=== PATIENT | male | born 1965 | race Caucasian/White ===

== ENCOUNTER 2017-07-30 22:46 | Emergency (ER) | payer SELFPAY ==
[2017-07-30 23:58] LABS: ADD MAN DIFF? NO
[2017-07-31 00:02] LABS: WHITE BLOOD COUNT 8.1 10^3/ul (4.8-10.8)
[2017-07-31 00:02] LABS: BASOPHIL # 0.1 10^3/ul (0.0-0.1); BASOPHILS % 0.6 % (0.0-2.0); EOSINOPHILS # 0.2 10^3/ul (0.0-0.5); EOSINOPHILS % 2.6 % (0.0-7.0); HEMATOCRIT 34.5 % (42.0-52.0); HEMOGLOBIN 12.4 g/dl (14.0-18.0); LYMPHOCYTES # 1.6 10^3/ul (0.8-2.9); LYMPHOCYTES % 19.1 % (15.0-51.0); MEAN CORPUSCULAR HEMOGLOBIN 31.5 pg (29.0-33.0); MEAN CORPUSCULAR HGB CONC 35.9 g/dl (32.0-37.0); MEAN CORPUSCULAR VOLUME 87.6 fl (82.0-101.0); MONOCYTE # 0.8 10^3/ul (0.3-0.9); MONOCYTES % 9.3 % (0.0-11.0); NEUTROPHIL # 5.5 10^3/ul (1.6-7.5); NEUTROPHILS % 67.4 % (39.0-77.0); PLATELET COUNT 198 10^3/UL (140-415); RED BLOOD COUNT 3.94 10^6/ul (4.70-6.10); RED CELL DISTRIBUTION WIDTH 12.6 % (11.5-14.5)
[2017-07-31 00:22] LABS: INR 1.02; PROTIME 13.5 Sec (11.9-14.9); PT RATIO 1.1
[2017-07-31 00:23] LABS: ALANINE AMINOTRANSFERASE 48 IU/L (13-69); ALBUMIN 3.8 g/dl (3.3-4.9); ALBUMIN/GLOBULIN RATIO 1.31; ALKALINE PHOSPHATASE 97 IU/L (42-121); ANION GAP 13 (8-16); ASPARTATE AMINO TRANSFERASE 30 IU/L (15-46); BILIRUBIN,INDIRECT 0.3 mg/dl (0-1.1); BILIRUBIN,TOTAL 0.3 mg/dl (0.2-1.3); BLOOD UREA NITROGEN 17 mg/dl (7-20); CALCIUM 8.7 mg/dl (8.4-10.2); CARBON DIOXIDE 25 mmol/L (21-31); CHLORIDE 106 mmol/L (97-110); CREATININE 0.91 mg/dl (0.61-1.24); GLUCOSE 107 mg/dl (70-220); LIPASE 316 U/L (23-300); PARTIAL THROMBOPLASTIN TIME 27.4 Sec (25.0-35.0); POTASSIUM 3.4 mmol/L (3.5-5.1); SODIUM 141 mmol/L (135-144); TOTAL PROTEIN 6.7 g/dl (6.1-8.1)
[2017-07-31 00:26] LABS: D-DIMER 454.48 ng/ml (<460)
[2017-07-31 00:38] LABS: TROPONIN-I < 0.012 ng/ml (0.00-0.12)
[2017-07-31 02:02] LABS: ETHANOL < 10.0 mg/dl
[2017-07-31 02:46] LABS: CARBAMAZEPINE (TEGRETOL) < 3.0 ug/ml (8.0-12.0)
[2017-07-31] MEDS: POTASSIUM CHLORIDE (SR) 20 MEQ TAB PO (03:00)
[2017-07-31 03:38] LABS: TROPONIN-I < 0.012 ng/ml (0.00-0.12)
== END 2017-07-31 04:00 | disposition home or self-care (01) ==
LOC: E/R 07-31 04:00
DX: E87.6 Hypokalemia (principal); D64.9 Anemia, unspecified
CPT/HCPCS: 36415; 71045; 80053; 80156; 80306; 83690; 84484; 85025; 85378; 85610; 85730; 93005; 99285-25

== ENCOUNTER 2017-08-15 11:57 | Emergency (ER) | payer BC ==
[2017-08-15 12:47] LABS: ADD MAN DIFF? NO
[2017-08-15 12:51] LABS: WHITE BLOOD COUNT 8.4 10^3/ul (4.8-10.8)
[2017-08-15 12:51] LABS: BASOPHIL # 0.1 10^3/ul (0.0-0.1); BASOPHILS % 0.7 % (0.0-2.0); EOSINOPHILS # 0.1 10^3/ul (0.0-0.5); EOSINOPHILS % 1.3 % (0.0-7.0); HEMATOCRIT 38.5 % (42.0-52.0); HEMOGLOBIN 14.1 g/dl (14.0-18.0); LYMPHOCYTES # 1.5 10^3/ul (0.8-2.9); LYMPHOCYTES % 18.2 % (15.0-51.0); MEAN CORPUSCULAR HEMOGLOBIN 31.5 pg (29.0-33.0); MEAN CORPUSCULAR HGB CONC 36.6 g/dl (32.0-37.0); MEAN CORPUSCULAR VOLUME 86.1 fl (82.0-101.0); MEAN PLATELET VOLUME 9.5 fl (7.4-10.4); MONOCYTE # 0.6 10^3/ul (0.3-0.9); MONOCYTES % 7.6 % (0.0-11.0); NEUTROPHILS % 71.1 % (39.0-77.0); PLATELET COUNT 211 10^3/UL (140-415); RED BLOOD COUNT 4.47 10^6/ul (4.70-6.10); RED CELL DISTRIBUTION WIDTH 12.1 % (11.5-14.5)
[2017-08-15] MEDS: KETOROLAC 15 MG INJ IV (12:55)
[2017-08-15] MEDS: SOD CHLORIDE 0.9% 1,000 ML IV (12:55)
[2017-08-15 13:09] LABS: ANION GAP 16 (8-16); BLOOD UREA NITROGEN 11 mg/dl (7-20); CALCIUM 9.1 mg/dl (8.4-10.2); CARBON DIOXIDE 24 mmol/L (21-31); CHLORIDE 104 mmol/L (97-110); CREATININE 0.88 mg/dl (0.61-1.24); GLUCOSE 134 mg/dl (70-220); SODIUM 141 mmol/L (135-144)
[2017-08-15 13:17] LABS: VALPROATE < 10 ug/ml (50-100)
[2017-08-15] MEDS: ALBUTEROL 0.5% (NEB) 2.5 MG/0.5 ML AMP INH (13:57)
[2017-08-15] MEDS: POTASSIUM CHLORIDE 20 MEQ POWDER FOR ORAL SOLN PO (15:26)
[2017-08-15] MEDS: POTASSIUM CHLORIDE (SR) 20 MEQ TAB PO (15:26)
== END 2017-08-15 15:27 | disposition home or self-care (01) ==
LOC: E/R 11:57
DX: J20.9 Acute bronchitis, unspecified (principal); R13.10 Dysphagia, unspecified; B34.9 Viral infection, unspecified; E87.6 Hypokalemia; I10 Essential (primary) hypertension
CPT/HCPCS: 70360; 71045; 80048; 80164; 85025; 93005; 94644; 96374; 99284-25

== ENCOUNTER 2017-08-19 13:41 | Emergency (ER) | payer SELFPAY, BC | END 2017-08-19 20:08 | disposition left against medical advice (07) | LOC: E/R 13:41 | DX: Z53.21 Procedure and treatment not carried out due to patient leaving prior to being seen by health care provider (principal) | CPT/HCPCS: 93005 ==

== ENCOUNTER 2017-08-24 12:37 | Emergency (ER) | payer BC ==
[2017-08-24 14:38] LABS: ADD MAN DIFF? NO
[2017-08-24 14:41] LABS: ABNORMAL IP MESSAGE 1; BASOPHILS % 0.1 % (0.0-2.0); HEMATOCRIT 41.4 % (42.0-52.0); HEMOGLOBIN 14.4 g/dl (14.0-18.0); LYMPHOCYTES # 0.5 10^3/ul (0.8-2.9); LYMPHOCYTES % 6.5 % (15.0-51.0); MEAN CORPUSCULAR HEMOGLOBIN 31.1 pg (29.0-33.0); MEAN CORPUSCULAR HGB CONC 34.8 g/dl (32.0-37.0); MEAN CORPUSCULAR VOLUME 89.4 fl (82.0-101.0); MEAN PLATELET VOLUME 10.3 fl (7.4-10.4); MONOCYTE # 0.1 10^3/ul (0.3-0.9); MONOCYTES % 1.3 % (0.0-11.0); NEUTROPHIL # 7.7 10^3/ul (1.6-7.5); NEUTROPHILS % 91.5 % (39.0-77.0); PLATELET COUNT 235 10^3/UL (140-415); POSITIVE DIFF @See below; RED BLOOD COUNT 4.63 10^6/ul (4.70-6.10); RED CELL DISTRIBUTION WIDTH 12.2 % (11.5-14.5)
[2017-08-24 14:41] LABS: WHITE BLOOD COUNT 8.4 10^3/ul (4.8-10.8)
[2017-08-24 14:42] LABS: ETHANOL < 10.0 mg/dl
[2017-08-24 14:48] LABS: ANION GAP 16 (8-16); BLOOD UREA NITROGEN 18 mg/dl (7-20); CALCIUM 9.4 mg/dl (8.4-10.2); CARBON DIOXIDE 23 mmol/L (21-31); CHLORIDE 109 mmol/L (97-110); CREATININE 0.85 mg/dl (0.61-1.24); GLUCOSE 159 mg/dl (70-220); POTASSIUM 4.2 mmol/L (3.5-5.1); SODIUM 144 mmol/L (135-144)
[2017-08-24 15:10] LABS: TROPONIN-I < 0.012 ng/ml (0.00-0.12)
== END 2017-08-24 16:10 | disposition left against medical advice (07) ==
LOC: E/R 12:37
DX: R07.9 Chest pain, unspecified (principal); I10 Essential (primary) hypertension
CPT/HCPCS: 71045; 80048; 80306; 84484; 85025; 93005; 99285-25

== ENCOUNTER 2017-11-02 08:57 | Observation (INO) | payer BC ==
[2017-11-02] MEDS: ASPIRIN 325 MG TAB PO (09:18)
[2017-11-02 09:23] LABS: ADD MAN DIFF? NO
[2017-11-02 09:25] LABS: WHITE BLOOD COUNT 6.2 10^3/ul (4.8-10.8)
[2017-11-02 09:25] LABS: BASOPHILS % 0.5 % (0.0-2.0); EOSINOPHILS # 0.1 10^3/ul (0.0-0.5); HEMATOCRIT 37.6 % (42.0-52.0); HEMOGLOBIN 13.2 g/dl (14.0-18.0); LYMPHOCYTES # 1.3 10^3/ul (0.8-2.9); LYMPHOCYTES % 20.4 % (15.0-51.0); MEAN CORPUSCULAR HEMOGLOBIN 30.2 pg (29.0-33.0); MEAN CORPUSCULAR HGB CONC 35.1 g/dl (32.0-37.0); MEAN PLATELET VOLUME 8.9 fl (7.4-10.4); MONOCYTE # 0.5 10^3/ul (0.3-0.9); MONOCYTES % 8.7 % (0.0-11.0); NEUTROPHIL # 4.3 10^3/ul (1.6-7.5); NEUTROPHILS % 68.9 % (39.0-77.0); PLATELET COUNT 211 10^3/UL (140-415); RED BLOOD COUNT 4.37 10^6/ul (4.70-6.10); RED CELL DISTRIBUTION WIDTH 12.2 % (11.5-14.5)
[2017-11-02 09:44] LABS: ANION GAP 13 (8-16); BLOOD UREA NITROGEN 16 mg/dl (7-20); CALCIUM 8.8 mg/dl (8.4-10.2); CARBON DIOXIDE 25 mmol/L (21-31); CHLORIDE 112 mmol/L (97-110); CREATININE 0.73 mg/dl (0.61-1.24); GLUCOSE 119 mg/dl (70-220); POTASSIUM 3.4 mmol/L (3.5-5.1); SODIUM 147 mmol/L (135-144)
[2017-11-02 09:57] LABS: TROPONIN-I < 0.012 ng/ml (0.00-0.12)
[2017-11-02] MEDS ORDERED: NACL 0.9% 3 ML SYG IV (14:30)
[2017-11-02 15:51] LABS: CREATINE KINASE 184 IU/L (23-200)
[2017-11-02 16:02] LABS: CK INDEX 1.1
[2017-11-02 16:18] LABS: CK-MB 1.98 ng/ml (0.0-2.4); TROPONIN-I < 0.012 ng/ml (0.00-0.12)
[2017-11-02] MEDS: traZODone 50 MG TAB PO (22:00)
[2017-11-03] MEDS: ENOXAPARIN 40 MG/0.4 ML SYG SC (09:57)
[2017-11-03 11:18] LABS: CREATINE KINASE 133 IU/L (23-200)
[2017-11-03 11:41] LABS: CK-MB 1.36 ng/ml (0.0-2.4); TROPONIN-I < 0.012 ng/ml (0.00-0.12)
[2017-11-03] MEDS: POTASSIUM CHLORIDE (SR) 20 MEQ TAB PO (20:55)
[2017-11-03] MEDS: traZODone 50 MG TAB PO (20:55)
[2017-11-04] MEDS: ENOXAPARIN 40 MG/0.4 ML SYG SC (08:16)
== END 2017-11-04 16:50 | disposition left against medical advice (07) ==
LOC: E/R 08:57 → MS4 10:23
DX: R07.89 Other chest pain (principal); L30.9 Dermatitis, unspecified; F31.9 Bipolar disorder, unspecified; I10 Essential (primary) hypertension; Z88.6 Allergy status to analgesic agent; Z88.8 Allergy status to other drugs, medicaments and biological substances; D64.9 Anemia, unspecified; J20.9 Acute bronchitis, unspecified; E87.6 Hypokalemia; R13.10 Dysphagia, unspecified
CPT/HCPCS: 36415; 71045; 80048; 82550; 82553; 83735; 84484; 85025; 93005; 93306; 99285-25; G0378

== ENCOUNTER 2017-12-03 08:19 | Inpatient (IN) | payer BC ==
[2017-12-03 09:08] LABS: ADD MAN DIFF? NO
[2017-12-03 09:11] LABS: WHITE BLOOD COUNT 9.9 10^3/ul (4.8-10.8)
[2017-12-03 09:11] LABS: BASOPHILS % 0.4 % (0.0-2.0); EOSINOPHILS # 0.3 10^3/ul (0.0-0.5); EOSINOPHILS % 2.9 % (0.0-7.0); HEMATOCRIT 37.3 % (42.0-52.0); HEMOGLOBIN 12.7 g/dl (14.0-18.0); LYMPHOCYTES # 1.4 10^3/ul (0.8-2.9); LYMPHOCYTES % 13.8 % (15.0-51.0); MEAN CORPUSCULAR HEMOGLOBIN 29.9 pg (29.0-33.0); MEAN CORPUSCULAR VOLUME 87.8 fl (82.0-101.0); MEAN PLATELET VOLUME 9.9 fl (7.4-10.4); MONOCYTE # 0.9 10^3/ul (0.3-0.9); MONOCYTES % 9.1 % (0.0-11.0); NEUTROPHIL # 7.3 10^3/ul (1.6-7.5); NEUTROPHILS % 73.3 % (39.0-77.0); PLATELET COUNT 170 10^3/UL (140-415); RED BLOOD COUNT 4.25 10^6/ul (4.70-6.10); RED CELL DISTRIBUTION WIDTH 13.5 % (11.5-14.5)
[2017-12-03 09:32] LABS: ALANINE AMINOTRANSFERASE 28 IU/L (13-69); ALBUMIN 4.1 g/dl (3.3-4.9); ALBUMIN/GLOBULIN RATIO 1.28; ALKALINE PHOSPHATASE 128 IU/L (42-121); ANION GAP 13 (8-16); ASPARTATE AMINO TRANSFERASE 22 IU/L (15-46); BILIRUBIN,INDIRECT 1.2 mg/dl (0-1.1); BILIRUBIN,TOTAL 1.2 mg/dl (0.2-1.3); BLOOD UREA NITROGEN 13 mg/dl (7-20); CALCIUM 8.6 mg/dl (8.4-10.2); CARBON DIOXIDE 23 mmol/L (21-31); CHLORIDE 107 mmol/L (97-110); CREATINE KINASE 139 IU/L (23-200); CREATININE 0.74 mg/dl (0.61-1.24); GLUCOSE 98 mg/dl (70-220); POTASSIUM 3.4 mmol/L (3.5-5.1); SODIUM 140 mmol/L (135-144); TOTAL PROTEIN 7.3 g/dl (6.1-8.1)
[2017-12-03 09:33] LABS: LACTIC ACID 0.5 mmol/L (0.5-2.0)
[2017-12-03 09:38] LABS: INR 0.97; PARTIAL THROMBOPLASTIN TIME 31.5 Sec (25.0-35.0)
[2017-12-03] MEDS: CLINDAMYCIN 900 MG/D5W (PMX) 50 ML IVPB (09:59)
[2017-12-03] MEDS: ONDANSETRON 4 MG INJ IV (10:00)
[2017-12-03] MEDS: morphine 4 MG/ML VIAL IV (10:00)
[2017-12-03] MEDS: SODIUM CHLORIDE 0.9% 1L BAG IV* (10:01)
[2017-12-03] MEDS ORDERED: ONDANSETRON 4 MG INJ IV ×2 (11:00→12:00)
[2017-12-03] MEDS ORDERED: NACL 0.9% 3 ML SYG IV (12:00)
[2017-12-03] MEDS: POTASSIUM CHLORIDE (SR) 10 MEQ TAB PO (12:00)
[2017-12-03] MEDS ORDERED: VANCOMYCIN IV PER PHARMACY XX (12:00)
[2017-12-03] MEDS ORDERED: morphine 2 MG INJ IV (12:00)
[2017-12-03 12:06] LABS: LACTIC ACID 0.8 mmol/L (0.5-2.0)
[2017-12-03] MEDS: VANCOMYCIN 1.5 GM in SOD CHLORIDE 0.9% 250 ML IVPB (14:06)
[2017-12-03 14:25] LABS: LACTIC ACID 1.7 mmol/L (0.5-2.0)
[2017-12-03 14:32] LABS: ETHANOL < 10.0 mg/dl
[2017-12-03 14:34] LABS: HEMOGLOBIN A1C 5.4 % (0-5.9)
[2017-12-03 14:43] LABS: FREE T4 (FREE THYROXINE) 0.95 ng/dl (0.64-1.79)
[2017-12-03] MEDS: morphine LIQ (10 MG/5 ML) CUP PO (18:30)
[2017-12-03] MEDS: VANCOMYCIN 1 GM 250 ML IVPB (21:30)
[2017-12-04] MEDS: IBUPROFEN 600 MG TAB PO ×3 (01:03→21:45)
[2017-12-04] MEDS: VANCOMYCIN 1 GM 250 ML IVPB ×2 (05:27→14:52)
[2017-12-04] MEDS: ENOXAPARIN 40 MG/0.4 ML SYG SC (09:40)
[2017-12-04 14:00] LABS: ADD MAN DIFF? NO
[2017-12-04 14:02] LABS: WHITE BLOOD COUNT 11.5 10^3/ul (4.8-10.8)
[2017-12-04 14:02] LABS: BASOPHIL # 0.1 10^3/ul (0.0-0.1); BASOPHILS % 0.4 % (0.0-2.0); EOSINOPHILS # 0.4 10^3/ul (0.0-0.5); EOSINOPHILS % 3.2 % (0.0-7.0); HEMATOCRIT 38.5 % (42.0-52.0); HEMOGLOBIN 13.1 g/dl (14.0-18.0); LYMPHOCYTES # 1.4 10^3/ul (0.8-2.9); LYMPHOCYTES % 12.4 % (15.0-51.0); MEAN CORPUSCULAR HEMOGLOBIN 30.3 pg (29.0-33.0); MEAN CORPUSCULAR VOLUME 88.9 fl (82.0-101.0); MEAN PLATELET VOLUME 9.8 fl (7.4-10.4); MONOCYTE # 0.9 10^3/ul (0.3-0.9); MONOCYTES % 7.9 % (0.0-11.0); NEUTROPHIL # 8.7 10^3/ul (1.6-7.5); NEUTROPHILS % 75.2 % (39.0-77.0); PLATELET COUNT 191 10^3/UL (140-415); RED BLOOD COUNT 4.33 10^6/ul (4.70-6.10); RED CELL DISTRIBUTION WIDTH 13.6 % (11.5-14.5)
[2017-12-04 14:19] LABS: ANION GAP 13 (8-16); BLOOD UREA NITROGEN 13 mg/dl (7-20); CALCIUM 8.8 mg/dl (8.4-10.2); CARBON DIOXIDE 27 mmol/L (21-31); CHLORIDE 104 mmol/L (97-110); CREATININE 0.81 mg/dl (0.61-1.24); GLUCOSE 117 mg/dl (70-220); POTASSIUM 3.5 mmol/L (3.5-5.1); SODIUM 140 mmol/L (135-144)
[2017-12-04 14:20] LABS: CHOL/HDL RATIO 2.8 RATIO; CHOLESTEROL 112 mg/dl (100-200); HDL CHOLESTEROL 40 mg/dl (28-71); LDL CHOLESTEROL,CALCULATED 54 mg/dl; MAGNESIUM 2.2 mg/dl (1.7-2.5); TRIGLYCERIDES 90 mg/dl (0-149)
[2017-12-04 14:25] LABS: VANCOMYCIN,TROUGH 8.7 ug/ml (10.0-20.0)
[2017-12-04 14:35] LABS: C-REACTIVE PROTEIN 16.9 mg/dl (0.0-0.9)
[2017-12-04] MEDS: LEVOFLOXACIN 500 MG TAB PO (14:47)
[2017-12-04 15:06] LABS: ERYTHROCYTE SEDIMENTATION RATE 100 mm/Hr (0-20)
[2017-12-04] MEDS: morphine LIQ (10 MG/5 ML) CUP PO (17:47)
[2017-12-04] MEDS ORDERED: LORAZEPAM 2 MG INJ IV (20:30)
[2017-12-04] MEDS: VANCOMYCIN 1.25 GM in SOD CHLORIDE 0.9% 250 ML IVPB (21:45)
[2017-12-05] MEDS: VANCOMYCIN 1.25 GM in SOD CHLORIDE 0.9% 250 ML IVPB ×3 (05:42→22:00)
[2017-12-05] MEDS: LEVOFLOXACIN 500 MG TAB PO (05:43)
[2017-12-05] MEDS: ENOXAPARIN 40 MG/0.4 ML SYG SC (09:00)
[2017-12-05] MEDS: OLANZAPINE 5 MG TAB PO ×2 (13:00→21:00)
[2017-12-06] MEDS: LEVOFLOXACIN 500 MG TAB PO (05:01)
[2017-12-06] MEDS: VANCOMYCIN 1.25 GM in SOD CHLORIDE 0.9% 250 ML IVPB (05:01)
[2017-12-06] MEDS: OLANZAPINE 5 MG TAB PO (08:37)
[2017-12-06] MEDS: ENOXAPARIN 40 MG/0.4 ML SYG SC (08:37)
== END 2017-12-06 10:00 | disposition left against medical advice (07) | DRG 603 ==
LOC: MS2 12-04 03:08 → E/R 08:19 → MS2 10:35
DX: L03.116 Cellulitis of left lower limb (principal); I10 Essential (primary) hypertension; F32.9 Major depressive disorder, single episode, unspecified; D64.9 Anemia, unspecified; S80.12XA Contusion of left lower leg, initial encounter; E87.6 Hypokalemia; B95.62 Methicillin resistant Staphylococcus aureus infection as the cause of diseases classified elsewhere; Y09 Assault by unspecified means; Y93.89 Activity, other specified; Y92.9 Unspecified place or not applicable; Y99.8 Other external cause status; F17.210 Nicotine dependence, cigarettes, uncomplicated; Z53.21 Procedure and treatment not carried out due to patient leaving prior to being seen by health care provider; Z59.0 Homelessness; Z91.19 Patient's noncompliance with other medical treatment and regimen
CPT/HCPCS: 36415; 73590; 73630-LT; 80048; 80053; 80061; 80202; 80307; 82306; 82550; 82652; 83036; 83605; 83735; 84100; 84439; 84443; 85025; 85610; 85651; 85730; 86140; 87040; 87070; 93005; 93971; 96374; 96375; 99285-25